=== PATIENT | female | born 1990 | race Caucasian/White ===

== ENCOUNTER → 2016-10-18 | Outpatient (REF) | payer OTHER | LOC: M LAB REF 12:53 | PROVIDERS: ATTEND Family Medicine | DX: N76.89 Other specified inflammation of vagina and vulva (principal) ==

== ENCOUNTER → 2017-06-04 | Outpatient (CLI) | payer BC, OTHER ==
[2017-06-04 13:08] LABS: BASO % 0.3 % (0.0-1.0); EOS # 0.2 10^3/uL (0.0-0.50); EOS % 1.9 % (0.0-3.0); HEMOGLOBIN 12.9 g/dl (12.0-16.0); IMMATURE GRANULOCYTE % 0.3 % (0-3.0); LYMPH # 2.1 10^3/uL (1.5-6.5); LYMPH % 22.9 % (24.0-44.0); MEAN CORPUSCULAR HEMOGLOBIN 28.9 pg (27.0-33.0); MEAN CORPUSCULAR HGB CONC 33.9 g/dl (32.0-36.5); MEAN CORPUSCULAR VOLUME 85.2 fl (80.0-96.0); MONO # 0.7 10^3/uL (0.0-0.8); MONO % 7.5 % (0.0-5.0); NEUTROPHILS # 6.2 10^3/uL (1.8-7.7); NEUTROPHILS % 67.1 % (36.0-66.0); PLATELET COUNT, AUTOMATED 248 10^3/uL (150-450); RED BLOOD COUNT 4.46 10^6/uL (4.00-5.40); RED CELL DISTRIBUTION WIDTH 12.6 % (11.5-14.5); WHITE BLOOD COUNT 9.2 10^3/uL (4.0-10.0)
[2017-06-04 14:50] LABS: CHLAMYDIA DNA AMPLIFICATION NEGATIVE (NEGATIVE); GC DNA AMPLIFICATION NEGATIVE (NEGATIVE)
[2017-06-05 09:25] LABS: RUBELLA IgG QUALITATIVE IMMUNE (IMMUNE)
[2017-06-05 09:36] LABS: HBsAg Prenatal NEGATIVE (NEGATIVE)
[2017-06-05 09:55] LABS: HEPATITIS C VIRUS ABY INDEX 0.1 INDEX (<0.8)
[2017-06-05 09:55] LABS: HIV 1&2 SCREEN CENTAUR NEGATIVE (NEGATIVE)
== END ==
LOC: M SMT 09:26
DX: Z34.81 Encounter for supervision of other normal pregnancy, first trimester (principal); Z3A.08 8 weeks gestation of pregnancy
CPT/HCPCS: 86762

== ENCOUNTER → 2017-08-21 | Outpatient (CLI) | payer OTHER | LOC: M SMT 09:34 | DX: Z36.89 Encounter for other specified antenatal screening (principal); Z3A.19 19 weeks gestation of pregnancy | CPT/HCPCS: 76811 ==

== ENCOUNTER → 2017-09-06 | Outpatient (CLI) | payer OTHER | LOC: M SMT 13:28 | DX: Z34.82 Encounter for supervision of other normal pregnancy, second trimester (principal); Z3A.21 21 weeks gestation of pregnancy ==

== ENCOUNTER → 2017-10-22 | Outpatient (CLI) | payer OTHER ==
[2017-10-22 14:04] LABS: BASO % 0.2 % (0.0-1.0); EOS # 0.1 10^3/uL (0.0-0.50); EOS % 0.9 % (0.0-3.0); HEMATOCRIT 37.3 % (36.0-47.0); HEMOGLOBIN 12.1 g/dl (12.0-15.5); IMMATURE GRANULOCYTE % 0.7 % (0-3.0); LYMPH # 1.9 10^3/uL (1.5-6.5); LYMPH % 17.3 % (24.0-44.0); MEAN CORPUSCULAR HEMOGLOBIN 29.6 pg (27.0-33.0); MEAN CORPUSCULAR HGB CONC 32.4 g/dl (32.0-36.5); MEAN CORPUSCULAR VOLUME 91.2 fl (80.0-96.0); MONO # 0.6 10^3/uL (0.0-0.8); MONO % 5.1 % (0.0-5.0); NEUTROPHILS # 8.1 10^3/uL (1.8-7.7); NEUTROPHILS % 75.8 % (36.0-66.0); PLATELET COUNT, AUTOMATED 208 10^3/uL (150-450); RED BLOOD COUNT 4.09 10^6/uL (4.00-5.40); RED CELL DISTRIBUTION WIDTH 13.2 % (11.5-14.5); WHITE BLOOD COUNT 10.7 10^3/uL (4.0-10.0)
[2017-10-22 14:26] LABS: GLUCOSE CHALLENGE TEST 1 HOUR 90 MG/DL (LESS THAN 140)
== END ==
LOC: M SMT 08:59
DX: Z34.82 Encounter for supervision of other normal pregnancy, second trimester (principal); Z36.89 Encounter for other specified antenatal screening
CPT/HCPCS: 82950

== ENCOUNTER → 2017-12-20 | Outpatient (REF) | payer OTHER | LOC: M LAB REF 17:22 | DX: Z34.83 Encounter for supervision of other normal pregnancy, third trimester (principal) ==

== ENCOUNTER 2017-12-31 05:43 | Inpatient (IN) | payer OTHER ==
[2017-12-31] MEDS: LACTATED RINGER'S 1000 ML IV (06:55)
[2017-12-31 07:20] LABS: HEMATOCRIT 40.1 % (36.0-47.0); HEMOGLOBIN 13.7 g/dl (12.0-15.5); MEAN CORPUSCULAR HEMOGLOBIN 29.4 pg (27.0-33.0); MEAN CORPUSCULAR HGB CONC 34.2 g/dl (32.0-36.5); MEAN CORPUSCULAR VOLUME 86.1 fl (80.0-96.0); PLATELET COUNT, AUTOMATED 234 10^3/uL (150-450); RED BLOOD COUNT 4.66 10^6/uL (4.00-5.40); RED CELL DISTRIBUTION WIDTH 13.2 % (11.5-14.5); WHITE BLOOD COUNT 10.9 10^3/uL (4.0-10.0)
[2017-12-31] MEDS ORDERED: FENTANYL 2MCG/ML ROPIVACAINE 0.2% IN 0.9% NACL 200ML IVBAG As Ordered (08:20)
[2017-12-31] MEDS: LR 1,000 ML IV ×2 (08:33→11:14)
[2017-12-31] MEDS: FENTANYL/ROPIVACAINE/NACL BAG 200 ML EPIDURAL (08:35)
[2017-12-31] MEDS: PRENATAL VITAMINS CHEWABLE TABLET PO (09:00)
[2017-12-31] MEDS ORDERED: ePHEDrine SULFATE 25 MG/5 ML(5MG/ML) SYRINGE IV (09:15)
[2017-12-31] MEDS ORDERED: EPIDURAL COMMENT XX (09:15)
[2017-12-31] MEDS ORDERED: NALOXONE INJ 0.4 MG/1 ML VIAL (J2310) IV (09:15)
[2017-12-31] MEDS ORDERED: diphenhydrAMINE INJ 50MG/ML VIAL (J1200) IV (09:15)
[2017-12-31] MEDS ORDERED: LACTATED RINGER'S 1000 ML IV (09:15)
[2017-12-31] MEDS ORDERED: REFRIGERATOR IV KEYS XX (09:15)
[2017-12-31] MEDS ORDERED: ONDANSETRON 4MG/2ML VIAL (J2405) IV (09:15)
[2017-12-31] MEDS ORDERED: EPIDURAL/PCA KEYS XX (09:15)
[2017-12-31] MEDS ORDERED: OXYTOCIN 30 UNITS IN 0.9% NaCl 500ML IV BAG (J2590) As Ordered (10:49)
[2017-12-31] MEDS: OXYTOCIN DRIP 30 UNITS in APPROPRIATE DILUENT 1 EA IV (13:34)
[2017-12-31] MEDS ORDERED: DOCUSATE SODIUM 100 MG CAP PO (13:45)
[2017-12-31] MEDS ORDERED: MOM 30ML SUSPENSION UDC PO (13:45)
[2017-12-31] MEDS ORDERED: METHYLERGONOVINE MALEATE 0.2 MG TAB PO (13:45)
[2017-12-31] MEDS ORDERED: ANUSOL HC CREAM 30GM TOP (13:45)
[2017-12-31] MEDS: IBUPROFEN 800 MG TAB PO ×2 (14:11→22:07)
[2017-12-31] MEDS: RHOGAM 300 MCG (1500 IU) INJ (J2790) IM (14:50)
[2017-12-31] MEDS: MEASLES,MUMPS,RUBELLA VACCINE INJ (MMR-II) (90707) SC (14:50)
[2017-12-31] MEDS: ACETAMINOPHEN 500 MG TAB PO (19:22)
[2017-12-31] MEDS: DIBUCAINE 1% OINTMENT 30GM TOP (19:22)
[2018-01-01] MEDS: PRENATAL VITAMINS CHEWABLE TABLET PO (07:25)
[2018-01-01] MEDS: IBUPROFEN 800 MG TAB PO ×3 (07:28→23:44)
[2018-01-02] MEDS: IBUPROFEN 800 MG TAB PO (08:08)
[2018-01-02] MEDS: PRENATAL VITAMINS CHEWABLE TABLET PO (08:08)
== END 2018-01-02 11:30 | disposition home or self-care (01) | DRG 560 ==
LOC: M LDO 05:43 → M LDI 06:58 → M OBS 14:39
PROVIDERS: Advanced Practice Midwife
PROC: 10E0XZZ Delivery of Products of Conception, External Approach (ICD-10-PCS; principal; 2017-12-31)
PROC: 0HQ9XZZ Repair Perineum Skin, External Approach (ICD-10-PCS; 2017-12-31)
DX: O70.0 First degree perineal laceration during delivery (principal); O69.82X0 Labor and delivery complicated by other cord entanglement, without compression, not applicable or unspecified; Z37.0 Single live birth; Z3A.38 38 weeks gestation of pregnancy

== ENCOUNTER → 2018-04-29 | Outpatient (REF) | payer OTHER ==
[~2018-04-29] MED LIST: IBUP-1114 PO; MAPA500T2 PO; PRENTAB9 PO; RANI15TA PO
== END ==
LOC: M LAB REF 09:40
PROVIDERS: ATTEND Obstetrics & Gynecology
DX: Z12.4 Encounter for screening for malignant neoplasm of cervix (principal)

== ENCOUNTER → 2018-06-03 | Outpatient (CLI) | payer OTHER | LOC: M SMT 14:11 | PROVIDERS: ATTEND Advanced Practice Midwife | DX: Z13.79 Encounter for other screening for genetic and chromosomal anomalies (principal) ==